=== PATIENT | male | born 1955 | race Caucasian/White ===

== ENCOUNTER → 2020-08-19 | Outpatient (CLI) | payer OTHER, MEDICARE ==
[~2020-08-19] MED LIST: ASPI-630 PO; ATOR10TA PO; MULT-245 PO; OXYC-325 PO
== END ==
LOC: LAB 10:25
PROVIDERS: ATTEND Surgery
DX: Z01.812 Encounter for preprocedural laboratory examination (principal); K40.90 Unilateral inguinal hernia, without obstruction or gangrene, not specified as recurrent; Z20.828 Contact with and (suspected) exposure to other viral communicable diseases
CPT/HCPCS: U0003

== ENCOUNTER 2020-08-22 06:18 | Day surgery (SDC) | payer OTHER, MEDICARE ==
[~2020-08-22] VITALS: Ht 177.8 cm; Wt 106.0 kg
[~2020-08-22 06:18] MED LIST changes: +HYDROmorphone 2 MG/ML VIAL IVP PRN; +IV RINGERS,LACTATED 1000ML 1,000 ML IV SCH; +MORPHINE SULFATE 2 MG/ML VIAL. IVP PRN; -OXYC-325 PO; +PROCHLORPERAZINE 10 MG/2 ML VIAL. IVP PRN; +fentaNYL PF VIAL 100 MCG/2 ML VIAL IVP PRN
[2020-08-22] MEDS ORDERED: BUPIVACAINE-EPI 0.25% 30 ML VIAL KIT. ONE (06:59)
[2020-08-22] MEDS ORDERED: MINERAL OIL for SURGERY 10 ML VIAL. MC ONE (06:59)
[2020-08-22] MEDS ORDERED: PROPOFOL 10 MG/ML (20ML) VIAL. IV ONE (07:17)
[2020-08-22] MEDS ORDERED: LIDOCAINE 2% PF 5 ML VIAL. ONE (07:17)
[2020-08-22] MEDS ORDERED: SUCCINYLCHOLINE 200 MG/10 ML VIAL. ONE (07:17)
[2020-08-22] MEDS ORDERED: fentaNYL PF VIAL 100 MCG/2 ML VIAL ONE (07:18)
[2020-08-22] MEDS ORDERED: ROCURONIUM 50 MG/5 ML VIAL. ONE (07:18)
--- NOTE | 2020-08-22 07:28 | PDOC1 ---
History and Physical Date of Admission Date of Admission DATE: 08/22/20 TIME: 07:25 Identification/Chief Complaint Chief Complaint Right groin pain with a bulge Source Source: Patient History of Present Illness History of Present Illness 64-year-old male with complaints of right groin pain he previously had a right inguinal hernia repair in 1984 most recently had an ultrasound for his pain was found to have a small fat-containing right inguinal hernia. Past Medical History Cardiovascular: Hyperlipidemia Pulmonary: No pertinent hx GI: No pertinent hx Heme/Onc: No pertinent hx Hepatobiliary: No pertinent hx Psych: No pertinent hx Rheumatologic: No pertinent hx Infectious disease: No pertinent hx ENT: No pertinent hx Renal/: No pertinent hx Endocrine: No pertinent hx Dermatology: No pertinent hx Past Surgical History Past Surgical History: Hernia Repair (Right) Family History Family History: No Significant Social History Smoke: No ALCOHOL: rare Drugs: None Current Medications Current Medications Current Medications Fentanyl Citrate (Fentanyl 2ml Vial) 25 mcg PRN Q5MIN PRN IVP MILD PAIN 1-3; Start 08/22/20 at 06:00; Stop 08/23/20 at 05:59 Fentanyl Citrate (Fentanyl 2ml Vial) 50 mcg PRN Q5MIN PRN IVP MODERATE PAIN 4- 6; Start 08/22/20 at 06:00; Stop 08/23/20 at 05:59 Morphine Sulfate (Morphine Sulfate) 1 mg PRN Q10MIN PRN IVP SEVERE PAIN 7-10; Start 08/22/20 at 06:00; Stop 08/23/20 at 05:59 Ringer's Solution 1,000 ml @ 30 mls/hr Q24H IV Last administered on 08/22/20at 06:57; Start 08/22/20 at 06:00; Stop 08/22/20 at 17:59 Hydromorphone HCl (Dilaudid) 0.5 mg PRN Q10MIN PRN IVP SEVERE PAIN 7-10, 2nd CHOICE; Start 08/22/20 at 06:00; Stop 08/23/20 at 05:59 Prochlorperazine Edisylate (Compazine) 5 mg PACU PRN PRN IVP NAUSEA, MRX1; Start 08/22/20 at 06:00; Stop 08/23/20 at 05:59 Cefazolin Sodium/ Dextrose 50 ml @ 100 mls/hr 1X PREOP PRN IV PRIOR TO PROCEDURE; Start 08/22/20 at 06:00; Stop 08/22/20 at 18:00 Acetaminophen (Tylenol) 1,000 mg 1X ONCE PO ; Start 08/22/20 at 07:30; Stop 08/22/20 at 07:31 Bupivacaine HCl/ Epinephrine Bitart (Sensorcain-Epi 0.25% Kit) 30 ml STK-MED ONCE .ROUTE ; Start 08/22/20 at 06:59; Stop 08/22/20 at 06:59; Status DC Mineral Oil (Muri-Lube) 10 ml STK-MED ONCE MC ; Start 08/22/20 at 06:59; Stop 08/22/20 at 06:59; Status DC Lidocaine HCl (Lidocaine Pf 2% Vial) 5 ml STK-MED ONCE .ROUTE ; Start 08/22/20 at 07:17; Stop 08/22/20 at 07:17; Status DC Propofol (Diprivan) 200 mg STK-MED ONCE IV ; Start 08/22/20 at 07:17; Stop 08/22/20 at 07:17; Status DC Succinylcholine Chloride (Anectine) 200 mg STK-MED ONCE .ROUTE ; Start 08/22/20 at 07:17; Stop 08/22/20 at 07:18; Status DC Rocuronium Coolspring (Zemuron) 50 mg STK-MED ONCE .ROUTE ; Start 08/22/20 at 07:18; Stop 08/22/20 at 07:18; Status DC Fentanyl Citrate (Fentanyl 2ml Vial) 100 mcg STK-MED ONCE .ROUTE ; Start 08/22/20 at 07:18; Stop 08/22/20 at 07:18; Status DC Active Scripts Active Reported Multi Vitamin Daily (Multivitamin) 1 Each Tablet 1 Each PO DAILY Aspirin 81 Mg Tab.chew 81 Mg PO DAILY Lipitor (Atorvastatin Calcium) 10 Mg Tablet 10 Mg PO DAILY Allergies Allergies: Coded Allergies: No Known Drug Allergies (Unverified , 08/14/20) ROS Genitourinary: YES Other (Groin pain) Physical Exam General: Alert, Oriented X3, Cooperative, No acute distress HEENT: Atraumatic, EOMI Lungs: Clear to auscultation, Normal air movement Heart: RRR, no murmurs Abdomen: Normal bowel sounds, Soft, No tenderness Male Genitals Exam: hernia (Right side) Rectal Exam: not examined Extremities: No edema Skin: No significant lesion Neuro: Normal speech Psych/Mental Status: Mental status NL Vitals Vitals Vital Signs Date Time Temp Pulse Resp B/P (MAP) Pulse Ox O2 Delivery O2 Flow Rate FiO2 08/22/20 06:56 97.8 65 18 159/70 97 Room Air 97.8 VTE Prophylaxis Ordered VTE Prophylaxis Devices: Yes VTE Pharmacological Prophylaxi: Contraindicated Assessment/Plan Assessment/Plan Right inguinal hernia recurrent plan robotic assisted laparoscopic repair Justifications for Admission Other Justification DEON ART MD Aug 22, 2020 07:28
[2020-08-22] MEDS ORDERED: ACETAMINOPHEN 500 MG TABLET PO ONE (07:30)
[2020-08-22] MEDS ORDERED: DESFLURANE 31 TO 60 MINUTES IH ONE (07:55)
[2020-08-22] MEDS ORDERED: DEXAMETHASONE SOD PHOS 20 MG/5 ML VIAL. ONE (07:55)
[2020-08-22] MEDS ORDERED: ONDANSETRON PF 4 MG/2 ML VIAL. ONE ×2 (07:55→08:05)
[2020-08-22] MEDS ORDERED: GLYCOPYRROLATE 1 MG/5 ML VIAL. ONE (08:05)
[2020-08-22] MEDS ORDERED: NEOSTIGMINE METHYLSULFATE 5 MG/5 ML SYRINGE. ONE (08:05)
--- NOTE | 2020-08-22 08:23 | PDOC4 ---
Operative Note Operative Note Date: August 222020 at 08 21 Preoperative diagnosis: Recurrent right inguinal hernia Postoperative diagnosis: Same Procedure: Robotic assisted laparoscopic right inguinal hernia repair with mesh Surgeon: Nikita Specimen: None Dictation: Patient is 64-year-old male who had a right inguinal hernia repaired back in the 1980s is now having right groin pain and an ultrasound recently showed a small right inguinal hernia with incarcerated fat. Procedure of robotic assisted laparoscopic right inguinal hernia repair with mesh was explained to the patient detail risk-benefit were also discussed including bleeding infection injury to intra-abdominal contents possible necessitating further or open operations alternatives to this procedure also discussed with the patient who seemed to understand and gave both verbal and written consent to have the procedure performed. Patient was taken to the operating room placed in the supine position general anesthesia was initiated once patient was sleeping intubated placed in low lithotomy positioning and his abdomen was prepped and draped usual sterile fashion using ChloraPrep. An area just above the umbilicus was injected with quarter percent Marcaine with epinephrine incision was made 11 blade scalpel and a varies needle was placed within the abdomen creating pneumoperitoneum once this was complete a 8 mm da Daina port was placed in the da Daina camera is placed within the abdomen which was inspected no other ab maladies were noted a small right inguinal hernia was visualized. A 8 mm da Daina ports placed in the right midabdomen and one in the left midabdomen. The da Daina robot was brought and docked all port sites surgeon went to the robotic console using a grasper and Endo Perla scissors the peritoneum over the right side was incised and a inferior flap was propagated reducing the hernia contents. A large Bard 3D max mesh for the right side was placed over the hernia defect and along the inguinal floor. The peritoneum was then closed with a running 2 OV lock absorbable suture. Once this was complete the da Daina robot was undocked from all port sites all ports were removed the pneumoperitoneum was reduced and port sites were all closed with 4 subcuticular Monocryl Mastisol Steri-Strips and island dressings were applied. Patient was awakened and extubated in the operating room taken to recovery in stable condition all sponge instrument needle counts listed as correct estimated blood loss 5 mL DEON ART MD Aug 22, 2020 08:23
--- NOTE | 2020-08-22 08:25 | DISCH ---
DISCHARGE INSTRUCTIONS Condition on Discharge Condition on Discharge: Stable Activity After Discharge Activity Instructions for Disc: Avoid exertion Other activity instructions: No lifting more than 20 pounds for 2 weeks Diet after Discharge Diet after Discharge: Regular Wound Incision Care Other wound/incision instructi: Radha shower in 24 hours Contacting the after DC Call your doctor for: If your condition worsens Follow-Up Follow up with: Dr. Art in 2 weeks DEON ART MD Aug 22, 2020 08:25
[2020-08-22] MEDS ORDERED: oxyCODONE/APAP 5/325 1 TAB TABLET PO ONE ×2 (09:00)
[2020-08-22] MEDS ORDERED: OXYC-325 PO (09:05)
[2020-08-22 09:15] VITALS: BP 123/62
== END 2020-08-22 10:00 | disposition home or self-care (01) ==
LOC: SURG 06:18 → EDUNIT# 07:30 → SURG 10:00
PROVIDERS: ATTEND Surgery
DX: K40.91 Unilateral inguinal hernia, without obstruction or gangrene, recurrent (principal); E78.00 Pure hypercholesterolemia, unspecified; Z79.82 Long term (current) use of aspirin; Z79.899 Other long term (current) drug therapy; Z98.890 Other specified postprocedural states; Z72.89 Other problems related to lifestyle
CPT/HCPCS: 49651; C1781; J0330; J0690; J1100; J2405; J2704; J2710; J3010; J3490; S2900